=== PATIENT | female | born 1990 | race Caucasian/White ===

== ENCOUNTER 2018-06-06 15:06 | Emergency (ER) | payer BC ==
[~2018-06-06] VITALS: Wt 133.0 kg
[~2018-06-06 15:06] MED LIST: AMOX500C2 PO; FAMO40TA5 PO
--- NOTE | 2018-06-06 16:19 | ERD ---
ER Documentation Chief Complaint Chief Complaint bib self, cc: vag cramping, needs u/s, no authorization, HPI Patient is a 28-year-old female who has a history of endometrial cancer and is followed up by oncology as well as [employer]. She is awaiting to get an ultrasound done but she said to have her period next week and wants to have an ultrasound done today because she does not want to have it done during her period. She has pelvic cramping that she has had on and off for several months. No dysuria hematuria or frequency. No fever. Occasional nausea but no vomiting. ROS All systems reviewed and are negative except as per history of present illness. Medications Home Meds Active Scripts Amoxicillin* (Amoxicillin*) 500 Mg Cap, 500 MG PO TID for 7 Days, CAP Prov:CORRY MARY DO 10/01/15 Reported Medications Famotidine* (Famotidine*) 40 Mg Tablet, 40 MG PO DAILY, #30 TAB 01/30/16 Allergies Allergies: Coded Allergies: No Known Allergy (Unverified , 06/06/18) PMhx/Soc Medical and Surgical Hx: pt denies Medical Hx, pt denies Surgical Hx History of Surgery: No Anesthesia Reaction: No Hx Neurological Disorder: No Hx Cardiac Disorders: Yes Hx Psychiatric Problems: No Hx Miscellaneous Medical Probl: No Hx Alcohol Use: No Hx Substance Use: No Hx Tobacco Use: No Smoking Status: Never smoker FmHx Family History: No diabetes Physical Exam Vitals Vital Signs Date Temp Pulse Resp B/P (MAP) Pulse Ox O2 O2 Flow FiO2 Time Delivery Rate 06/06/18 98.3 82 19 159/99 100 15:15 (119) Physical Exam INITIAL VITAL SIGNS: Reviewed by me GENERAL: Awake, alert and oriented x 4, well appearing, nontoxic, speaking in full sentences. No acute distress HEAD: Atraumatic NECK: Supple. No masses. Full range of motion. No meningismus. No midline tenderness. EYES: EOMI. PERRL. RESPIRATORY: Clear to auscultation bilaterally. Symmetric chest wall rise. No wheezing or rales. No accessory muscle use. CV: Regular rate and rhythm. No murmurs, rubs, or gallops. ABDOMEN: Soft, non-distended. Nontender. Negative [place]. Negative [place] point tenderness. No CVA tenderness bilaterally. No guarding. No rebound. Results 24 hrs Laboratory Tests Test 06/06/18 16:26 06/06/18 16:28 Urine Color ANH Urine Clarity CLOUDY Urine pH 5.0 Urine Specific [place] 1.030 Urine Ketones TRACE mg/dL Urine Nitrite NEGATIVE mg/dL Urine Bilirubin NEGATIVE mg/dL Urine Urobilinogen NEGATIVE mg/dL Urine Leukocyte Esterase NEGATIVE Emery/ul Urine Microscopic RBC 1 /HPF Urine Microscopic WBC 2 /HPF Urine Squamous Epithelial Cells MODERATE /HPF Urine Bacteria FEW /HPF Urine Mucus MANY /HPF Urine Hemoglobin NEGATIVE mg/dL Urine Glucose NEGATIVE mg/dL Urine Total Protein NEGATIVE mg/dl POC Beta HCG, Qualitative NEGATIVE Procedures/MDM This is a 28-year-old female who is here with pelvic pain. She is requesting a pelvic ultrasound which was ordered as well as urine dip and urine test. Her ultrasound shows a small 8 mm fibroid in the anterior uterus. Also a 3.1 cm complex cyst in the left ovary. She was given copy of the report as well as CD with images so she can follow-up with her specialist. She is not and urine is negative for infection. Patient counseled regarding my diagnostic impression and care plan. Prior to discharge all questions answered. Pt agrees with treatment plan and understands strict return precautions. Pt is instructed to follow up with primary care provider within 24-48 hours. Precautionary instructions provided including instructions to return to the ER if not improving or for any worsening or changing symptoms or concerns. Departure Diagnosis: Primary Impression: Fibroid Additional Impression: Ovarian cyst Condition: Stable NIKUNJ HARPER PA-C Jun 06, 2018 16:19
== END 2018-06-06 18:05 | disposition home or self-care (01) ==
LOC: FTE 15:06
DX: D25.9 Leiomyoma of uterus, unspecified (principal); N83.202 Unspecified ovarian cyst, left side; Z85.42 Personal history of malignant neoplasm of other parts of uterus
CPT/HCPCS: 76830; 76856; 81001; 81025